=== PATIENT | female | born 1965 | race American Indian/Alaskan Native ===

== ENCOUNTER 2017-07-13 21:21 | Emergency (ER) | payer OTHER ==
[2017-07-13 22:20] LABS: Basophils % (Auto) 0.5 % (0.0-1.8); Eosinophils % (Auto) 1.2 % (0.0-4.3); Hematocrit 37.2 % (30.3-42.9); Hemoglobin 11.8 gm/dl (10.1-14.3); Mean Corpuscular HGB Conc 32 % (30-34); Mean Corpuscular Volume 73 fl (79-97); Platelet Count 285 K/mm3 (140-440); Red Blood Count 5.07 M/mm3 (3.65-5.03); Red Cell Distribution Width 14.7 % (13.2-15.2); White Blood Count 10.2 K/mm3 (4.5-11.0)
[2017-07-13 22:23] LABS: Anion Gap 20 mmol/L; BUN/Creatinine Ratio 18.75; Blood Urea Nitrogen 15 mg/dL (7-17); Calcium 9.2 mg/dL (8.4-10.2); Carbon Dioxide 24 mmol/L (22-30); Chloride 101.7 mmol/L (98-107); Glucose 97 mg/dL (65-100); Potassium 3.8 mmol/L (3.6-5.0); Sodium 142 mmol/L (137-145)
[2017-07-13 22:39] LABS: Mean Corpuscular Hemoglobin 23 pg (28-32)
[2017-07-13 22:41] LABS: Bilirubin,Urine NEG (Negative); Blood,Urine MOD (Negative); Ketones,Urine NEG (Negative); Leukocyte Esterase,Urine NEG (Negative); Mucus,Urine FEW /HPF; Nitrite,Urine NEG (Negative); Protein,Urine <15 mg/dL mg/dL (Negative); Urobilinogen,Urine < 2.0 mg/dL (<2.0); WBC,Urine < 1.0 /HPF (0.0-6.0)
--- NOTE | 2017-07-13 23:12 | XRay Report ---
FINAL REPORT EXAM: XR CHEST ROUTINE 2V HISTORY: COUGH/CHEST PAIN TECHNIQUE: Two view chest PA and lateral PRIORS: None. FINDINGS: Cardiac and mediastinal contours are unremarkable. No focal pulmonary infiltrate is identified. No pleural fluid collection seen. Pulmonary vasculature is unremarkable. IMPRESSION: Negative two-view chest
[2017-07-14] MEDS ORDERED: PEPCID PO ONE (01:17)
[2017-07-14] MEDS ORDERED: BABY ASPIRIN PO ONE (01:17)
--- NOTE | 2017-07-14 01:44 | Emergency Department Report ---
ED Shortness of Breath HPI - General Chief Complaint: Upper Respiratory Infection Stated Complaint: CHEST PAIN, SOB Time Seen by Provider: 07/14/17 00:55 Source: patient Mode of arrival: Ambulatory Limitations: No Limitations - History of Present Illness Initial Comments: 52-year-old female past medical history diabetes presents with complaint of dyspnea on exertion for the last week. Patient states she has been treated for bronchitis over the last week with antibiotics and anti-inflammatories. Patient is awake alert and oriented 3 states that she has had some intermittent substernal chest pain since yesterday while at rest. States she has gotten slightly short of breath with exertion over the last several days. States she is on prednisone and antibiotics for bronchitis. At this moment denies any chest pain diaphoresis nausea or vomiting. States that she did experience some upset stomach after taking prednisone and anti-inflammatories. No history of PR in mother or father. Does not take aspirin on a daily basis. Denies being a smoker. MD Complaint: shortness of breath, chest pain Onset/Timin -: days(s) Severity: mild Quality: aching Consistency: intermittent Improves With: nothing Worsens With: nothing Context: recent URI Associated Symptoms: denies other symptoms - Related Data Previous Rx's Medication Instructions Recorded Last Taken Type Aspirin EC [Aspirin Enteric Coated 81 mg PO QDAY #30 tablet. 07/14/17 Unknown Rx TAB] Bismuth Subsalicylate 10 ml PO QID PRN #1 bottle 07/14/17 Unknown Rx [Pepto-Bismol] Famotidine [Pepcid] 20 mg PO BID PRN #30 tablet 07/14/17 Unknown Rx Allergies Allergy/AdvReac Type Severity Reaction Status Date / Time No Known Allergies Allergy Verified 07/13/17 21:33 ED Review of Systems ROS: Stated complaint: CHEST PAIN, SOB Other details as noted in HPI Constitutional: denies: chills, fever Eyes: denies: eye pain, eye discharge, vision change ENT: denies: ear pain, throat pain Respiratory: denies: cough, shortness of breath, wheezing Cardiovascular: chest pain, dyspnea on exertion. denies: palpitations Endocrine: no symptoms reported Gastrointestinal: denies: abdominal pain, nausea, diarrhea Genitourinary: denies: urgency, dysuria, discharge Musculoskeletal: denies: back pain, joint swelling, arthralgia Skin: denies: rash, lesions Neurological: denies: headache, weakness, paresthesias Psychiatric: denies: anxiety, depression Hematological/Lymphatic: denies: easy bleeding, easy bruising ED Past Medical Hx - Past Medical History Previous Medical History?: Yes Additional medical history: BRONCHITIS/ SINUSITIS/ ANEMIA - Surgical History Past Surgical History?: Yes Hx Cholecystectomy: Yes Additional Surgical History: HYSTERECTOMY - Social History Smoking Status: Never Smoker Substance Use Type: Alcohol - Medications Home Medications: Home Medications Medication Instructions Recorded Confirmed Last Taken Type Aspirin EC [Aspirin Enteric Coated 81 mg PO QDAY #30 tablet.dr 07/14/17 Unknown Rx TAB] Bismuth Subsalicylate 10 ml PO QID PRN #1 bottle 07/14/17 Unknown Rx [Pepto-Bismol] Famotidine [Pepcid] 20 mg PO BID PRN #30 tablet 07/14/17 Unknown Rx ED Physical Exam - General Limitations: No Limitations General appearance: alert, in no apparent distress - Head Head exam: Present: atraumatic, normocephalic - Eye Eye exam: Present: normal appearance, PERRL, EOMI - ENT ENT exam: Present: mucous membranes moist - Neck Neck exam: Present: normal inspection, full ROM - Respiratory Respiratory exam: Present: normal lung sounds bilaterally. Absent: respiratory distress - Cardiovascular Cardiovascular Exam: Present: regular rate, normal rhythm. Absent: systolic murmur, diastolic murmur, rubs, gallop - GI/Abdominal GI/Abdominal exam: Present: soft, normal bowel sounds - Extremities Exam Extremities exam: Present: normal inspection - Back Exam Back exam: Present: normal inspection - Neurological Exam Neurological exam: Present: alert, oriented X3 - Psychiatric Psychiatric exam: Present: normal affect, normal mood - Skin Skin exam: Present: warm, dry, intact, normal color. Absent: rash ED Course Vital Signs 07/13/17 07/13/17 07/14/17 21:33 23:46 05:15 Temperature 98.5 F 97.9 F 98 F Pulse Rate 77 69 71 Respiratory 20 16 17 Rate Blood Pressure 120/84 Blood Pressure 105/69 112/72 [Right] O2 Sat by Pulse 100 98 99 Oximetry ED Medical Decision Making - Lab Data Result diagrams: 07/13/17 21:51 07/13/17 21:51 - Medical Decision Making A/P: Chest pain, shortness of breath, possible GERD 1-d-dimer negative, PE effectively ruled out 2-troponin negative 2. The initial troponin was taken from a BMP sample was done on patient arrived in the ER 7 hours ago. 2nd troponin was processed over 4 hours later. Troponin negative 2, EKG unremarkable 2. Labs otherwise unremarkable 3-follow-up with primary care and outpatient cardiology 4- HEART Score 3 point Low Score (0-3 points)Risk of MACE of 0.9-1.7%. LUIS ANTONIO 1 points 5% risk at 14 days of: all-cause mortality, new or recurrent PR, or severe recurrent ischemia requiring urgent revascularization. Critical care attestation.: If time is entered above; I have spent that time in minutes in the direct care of this critically ill patient, excluding procedure time. ED Disposition Clinical Impression: Shortness of breath Chest pain Qualifiers: Chest pain type: unspecified Qualified Code(s): R07.9 - Chest pain, unspecified GERD (gastroesophageal reflux disease) Qualifiers: Esophagitis presence: without esophagitis Qualified Code(s): K21.9 - Gastro- esophageal reflux disease without esophagitis Disposition: TO HOME OR SELFCARE Is pt being admited?: No Does the pt Need Aspirin: No Condition: Stable Instructions: Chest Pain (ED), Gastroesophageal Reflux Disease (ED) Prescriptions: Aspirin EC [Aspirin Enteric Coated TAB] 81 mg PO QDAY #30 tablet.dr Helmsmutchristel Subsalicylate [Pepto-Bismol] 10 ml PO QID PRN #1 bottle PRN Reason: Indigestion Famotidine [Pepcid] 20 mg PO BID PRN #30 tablet PRN Reason: Indigestion Referrals: DINESH FARRELL MD [Staff Physician] - 3-5 Days VALERIE POLLOCK MD [Staff Physician] - 3-5 Days [facility] [Outside] - 3-5 Days [facility] [Outside] - 3-5 Days Forms: Accompanied Note, Work/School Release Form(ED) Time of Disposition: 04:45
[2017-07-14 03:30] LABS: Creatine Kinase MB < 1.0 ng/mL (0.0-4.0)
[2017-07-14 03:33] LABS: Alanine Aminotransferase 12 units/L (7-56); Albumin 3.6 g/dL (3.9-5); Albumin/Globulin Ratio 1.5 %; Alkaline Phosphatase 31 units/L (35-129)
[2017-07-14 03:34] LABS: Bilirubin,Direct < 0.2 mg/dL (0-0.2)
[2017-07-14 05:22] VITALS: BP 112/72
== END 2017-07-14 05:15 | disposition home or self-care (01) ==
LOC: ED 21:21
DX: K21.9 Gastro-esophageal reflux disease without esophagitis (principal); R07.9 Chest pain, unspecified; R06.02 Shortness of breath; D64.9 Anemia, unspecified; Z90.49 Acquired absence of other specified parts of digestive tract; Z79.82 Long term (current) use of aspirin
CPT/HCPCS: 36415; 71020; 80048; 80074; 81001; 82550; 82553; 82805; 84484; 85025; 85379; 93005; 93010; 99284

== ENCOUNTER → 2017-12-31 | Outpatient (CLI) | payer OTHER | LOC: SLR 11:00 | PROVIDERS: ATTEND Otolaryngology | DX: G47.30 Sleep apnea, unspecified (principal) | CPT/HCPCS: G0399 ==

== ENCOUNTER 2021-05-29 23:05 | Emergency (ER) | payer SELFPAY ==
[2021-05-30 01:19] VITALS: BP 165/87
[2021-05-30] MEDS ORDERED: MORPHINE 4 MG/1 ML INJ IV ONE (03:46)
[2021-05-30] MEDS ORDERED: ONDANSETRON 4 MG/2 ML INJ IV ONE (03:46)
[2021-05-30] MEDS ORDERED: FAMOTIDINE 20 MG/2 ML INJ IV ONE (03:46)
[2021-05-30 04:37] LABS: Basophils % (Auto) 0.6 % (0.0-1.8); Eosinophils # (Auto) 0.1 K/mm3 (0.0-0.4); Eosinophils % (Auto) 1.6 % (0.0-4.3); Hematocrit 37.9 % (30.3-42.9); Hemoglobin 12.1 gm/dl (10.1-14.3); Lymphocytes # (Auto) 2.4 K/mm3 (1.2-5.4); Mean Corpuscular HGB Conc 32 % (30-34); Mean Corpuscular Volume 74 fl (79-97); Monocytes # (Auto) 0.5 K/mm3 (0.0-0.8); Platelet Count 239 K/mm3 (140-440); Red Blood Count 5.14 M/mm3 (3.65-5.03); Red Cell Distribution Width 15.3 % (13.2-15.2)
[2021-05-30 04:56] LABS: Alanine Aminotransferase 9 units/L (7-56); Albumin 4.6 g/dL (3.9-5); Blood Urea Nitrogen 10 mg/dL (7-17); Calcium 10.6 mg/dL (8.4-10.2); Hemolysis Index 0
[2021-05-30 04:57] LABS: BUN/Creatinine Ratio 14
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
--- NOTE | 2021-05-30 06:10 | Emergency Department Report ---
ED Abdominal Pain HPI - General Chief Complaint: Abdominal Pain Stated Complaint: ABD PAINS Source: patient Mode of arrival: Ambulatory Limitations: No Limitations - History of Present Illness Initial Comments: Patient is a 56-year-old -A[place]ij[place] female with history of iron deficiency anemia who presents to the ED with complaint of acute onset persistent epigastric pain with nausea and vomiting for the last 4 hours after eating fish that she suspects may have been spoiled. Patient states that the pain has been persistent and sharp intermittently since the onset. Patient also complains of nausea and lack of appetite. Patient denies diarrhea, dysuria, urinary frequ ency and urgency, chest pain, shortness of breath, hematemesis, hemoptysis, cough, vaginal bleeding, vaginal discharge, hematuria, sore throat, fever and chills or headache. MD Complaint: abdominal pain (Epigastric pain), other (Nausea) -: Sudden, hour(s) (4) Location: epigastric Radiation: none Migration to: no migration Severity scale (0 -10): 4 Quality: cramping, aching Consistency: intermittent Improves With: nothing Worsens With: eating Context: possible food poisoning Associated Symptoms: denies other symptoms, nausea, anorexia. denies: vomiting, diarrhea, fever, chills, constipation, dysuria, hematemesis, hematochezia, melena, hematuria, syncope - Related Data Previous Rx's Medication Instructions Recorded Last Taken Type Aspirin EC [Halfprin EC] 81 mg PO QDAY #30 tablet. 07/14/17 Unknown Rx Bismuth Subsalicylate 10 ml PO QID PRN #1 bottle 07/14/17 Unknown Rx [Pepto-Bismol] Famotidine [Pepcid] 20 mg PO BID PRN #30 tablet 07/14/17 Unknown Rx Dicyclomine [Bentyl] 20 mg PO Q6H PRN #30 tablet 05/30/21 Unknown Rx Famotidine [Pepcid] 20 mg PO Q12H #60 tablet 05/30/21 Unknown Rx Ondansetron [Zofran Odt] 4 mg PO Q6HR PRN #20 tab.rapdis 05/30/21 Unknown Rx Allergies Allergy/AdvReac Type Severity Reaction Status Date / Time No Known Allergies Allergy Verified 05/30/21 01:15 ED Review of Systems ROS: Stated complaint: ABD PAINS Other details as noted in HPI Constitutional: denies: chills, fever Eyes: denies: eye pain, eye discharge, vision change ENT: denies: ear pain, throat pain Respiratory: denies: cough, shortness of breath, wheezing Cardiovascular: denies: chest pain, palpitations Endocrine: no symptoms reported Gastrointestinal: abdominal pain (Epigastric pain), nausea. denies: diarrhea Genitourinary: denies: urgency, dysuria, discharge Musculoskeletal: denies: back pain, joint swelling, arthralgia Skin: denies: rash, lesions Neurological: denies: headache, weakness, paresthesias Psychiatric: denies: anxiety, depression Hematological/Lymphatic: denies: easy bleeding, easy bruising ED Past Medical Hx - Past Medical History Previous Medical History?: No Additional medical history: BRONCHITIS/ SINUSITIS/ ANEMIA - Surgical History Past Surgical History?: Yes Hx Cholecystectomy: Yes Additional Surgical History: HYSTERECTOMY, bariatric sx - Social History Smoking Status: Never Smoker Substance Use Type: None - Medications Home Medications: Home Medications Medication Instructions Recorded Confirmed Last Taken Type Aspirin EC [Halfprin EC] 81 mg PO QDAY #30 tablet.dr 07/14/17 Unknown Rx Bismuth Subsalicylate 10 ml PO QID PRN #1 bottle 07/14/17 Unknown Rx [Pepto-Bismol] Famotidine [Pepcid] 20 mg PO BID PRN #30 tablet 07/14/17 Unknown Rx Dicyclomine [Bentyl] 20 mg PO Q6H PRN #30 tablet 05/30/21 Unknown Rx Famotidine [Pepcid] 20 mg PO Q12H #60 tablet 05/30/21 Unknown Rx Ondansetron [Zofran Odt] 4 mg PO Q6HR PRN #20 tab.rapdis 05/30/21 Unknown Rx ED Physical Exam - General Limitations: No Limitations General appearance: alert, in no apparent distress - Head Head exam: Present: atraumatic, normocephalic, normal inspection - Eye Eye exam: Present: normal appearance, PERRL, EOMI Pupils: Present: normal accommodation - ENT ENT exam: Present: normal exam, normal orophraynx, mucous membranes moist, TM's normal bilaterally, normal external ear exam - Neck Neck exam: Present: normal inspection, full ROM - Respiratory Respiratory exam: Present: normal lung sounds bilaterally. Absent: respiratory distress, wheezes, rales, rhonchi, chest wall tenderness, accessory muscle use, decreased breath sounds, prolonged expiratory - Cardiovascular Cardiovascular Exam: Present: normal rhythm, bradycardia, normal heart sounds. Absent: systolic murmur, diastolic murmur, rubs, gallop - GI/Abdominal GI/Abdominal exam: Present: soft, tenderness (Mild epigastric tenderness to palpation), hyperactive bowel sounds. Absent: guarding, rebound, hypoactive bowel sounds - Extremities Exam Extremities exam: Present: normal inspection, full ROM, normal capillary refill - Back Exam Back exam: Present: normal inspection, full ROM. Absent: tenderness, CVA tenderness (R), CVA tenderness (L), muscle spasm, paraspinal tenderness, vertebral tenderness - Neurological Exam Neurological exam: Present: alert, oriented X3, CN II-XII intact, normal gait, reflexes normal - Psychiatric Psychiatric exam: Present: normal affect, normal mood - Skin Skin exam: Present: warm, dry, intact, normal color. Absent: rash ED Course Vital Signs 05/30/21 01:15 Temperature 98.5 F Pulse Rate 55 L Respiratory 18 Rate Blood Pressure 165/87 O2 Sat by Pulse 100 Oximetry ED Medical Decision Making - Lab Data Result diagrams: 05/30/21 03:48 05/30/21 03:48 - Medical Decision Making This is a 56-year-old -[place]ij[place] female with history of iron deficiency anemia who presents to the ED with complaint of acute onset persistent epigastric pain with nausea and vomiting for the last 4 hours after eating fish that she suspects may have been spoiled. Patient states that the pain has been persistent and sharp intermittently since the onset. Patient also complains of nausea and lack of appetite. Patient denies diarrhea, dysuria, urinary freque ncy and urgency, chest pain, shortness of breath, hematemesis, hemoptysis, cough, vaginal bleeding, vaginal discharge, hematuria, sore throat, fever and chills or headache. In the ED, patient is alert and oriented x3 and is not in any distress. Patient was treated in the ED with antacids, antiemetics and pain medications. Lab test results were reviewed and are all nonactionable. On reevaluation, patient's pain is well controlled medication. Patient's symptoms are likely due to viral gastroenteritis from food poisoning. Patient was discharged home on medications including antacids, antiemetics and pain medication and was advised to follow-up with her primary care physician in 5 to 7 days for reevaluation or return to the ED immediately if symptoms get worse. - Differential Diagnosis Viral gastroenteritis; gastritis; GERD; Critical care attestation.: If time is entered above; I have spent that time in minutes in the direct care of this critically ill patient, excluding procedure time. ED Disposition Clinical Impression: Acute epigastric pain, Viral gastroenteritis GERD (gastroesophageal reflux disease) Qualifiers: Esophagitis presence: esophagitis presence not specified Qualified Code(s): K21.9 - Gastro-esophageal reflux disease without esophagitis Disposition: TO HOME OR SELFCARE Is pt being admited?: No Does the pt Need Aspirin: No Condition: Stable Instructions: Viral Gastroenteritis, Adult, [id number], Heartburn, [id number], Abdominal Pain, Adult, [id number], Gastroesophageal Reflux Disease, Adult, [id number], Abdominal Pain (ED) Additional Instructions: All lab test results were reviewed and are all nonactionable. Your symptoms are likely due to viral gastroenteritis or food poisoning complicated by GERD. Therefore take pain medications and antacids as advised, drink plenty of fluids, follow-up with your primary care physician in 5 to 7 days for reevaluation. Return to the ED immediately if symptoms get worse. Prescriptions: Dicyclomine [Bentyl] 20 mg PO Q6H PRN #30 tablet PRN Reason: Abdominal pain Famotidine [Pepcid] 20 mg PO Q12H #60 tablet Ondansetron [Zofran Odt] 4 mg PO Q6HR PRN #20 tab.rapdis PRN Reason: Nausea Referrals: [facility] [Provider Group] - 3-5 Days Forms: Work/School Release Form(ED) Time of Disposition: 06:11 Print Language: [place]IC[place]
[2021-05-30 06:43] LABS: Bilirubin,Urine NEG (Negative); Blood,Urine SM (Negative); Color,Urine Yellow (Yellow); Mucus,Urine FEW /HPF; Protein,Urine <15 mg/dL mg/dL (Negative); Urobilinogen,Urine < 2.0 mg/dL (<2.0); WBC,Urine < 1.0 /HPF (0.0-6.0)
== END 2021-05-30 07:39 | disposition home or self-care (01) ==
LOC: ED 23:05
DX: A08.4 Viral intestinal infection, unspecified (principal); K21.9 Gastro-esophageal reflux disease without esophagitis; Z90.710 Acquired absence of both cervix and uterus
CPT/HCPCS: 36415; 80053; 81001; 83690; 85025; 96374; 96375; 99283; J2270; J2405